=== PATIENT | male | born 1970 | race Caucasian/White ===

== ENCOUNTER 2017-04-11 08:04 | Inpatient (IN) | payer OTHER ==
[~2017-04-11] VITALS: Ht 172.7 cm; Wt 87.0 kg
[2017-04-11] VITALS (21 sets, daily range): BP systolic 88–136; BP diastolic 49–96
[2017-04-11 08:07] LABS: BASOPHIL COUNT 0.1 K/uL (0-0.1); EOSINOPHIL (%) 4.3 % (0-5); EOSINOPHIL COUNT 0.4 K/uL (0-0.3); HEMATOCRIT 51.3 % (38.0-50.0); IMMATURE GRANULOCYTE (%) 0.3 % (0.0-0.7); INSTRUMENT ABS NEUTROPHIL CT 4.7 K/uL; LYMPHOCYTE COUNT 2.9 K/uL (1.0-2.8); MCH 27.7 PG (29.0-34.0); MCHC 33.7 G/DL (30.0-36.0); MCV 82.1 FL (86-99); MEAN PLAT.VOLUME 11.9 uM^3 (9.0-12.4); MONOCYTE (%) 8.4 % (3-12); MONOCYTE COUNT 0.7 K/uL (0-0.8); NEUTROPHIL (%) 53.6 % (45-76); NEUTROPHIL COUNT 4.7 K/uL (1.8-6.4); PLATELET COUNT 232 K/uL (156-360); RBC DIS.WIDTH-CV 13.2 % (11.8-14.6); RBC DIS.WIDTH-SD 39.5 % (39-53); RED BLOOD COUNT 6.25 M/uL (4.00-5.50); WHITE BLOOD COUNT 8.8 K/uL (4.1-10.2)
[2017-04-11 08:12] LABS: INTER. NORMALIZED RATIO 0.9; PROTHROMBIN TIME 10.5 SEC (10.2-12.9)
[2017-04-11 08:15] LABS: PTT 23.7 SEC (25-37)
[2017-04-11 08:35] LABS: AMYLASE 57 IU/L (1-118); CHLORIDE 105 mEq/L (99-109); POTASSIUM 3.8 mEq/L (3.7-5.4); SODIUM 138 mEq/L (136-147)
[2017-04-11 08:37] LABS: GLUCOSE 132 mg/dL (70-99)
[2017-04-11 08:38] LABS: ANION GAP 13 MEQ/L (2-14)
[2017-04-11 08:40] LABS: SERUM ETHYL ALCOHOL < 10 mg/dL
[2017-04-11 08:41] LABS: GFR ESTIMATE (CALCULATED) > 59 mL/min/; TROP-I INTERPRETATION NEGATIVE; TROPONIN-I < 0.01 ng/mL (0.0-0.30)
[2017-04-11 08:42] LABS: UREA NITROGEN (BUN) 12 mg/dL (9-23)
[2017-04-11 08:44] LABS: LIPASE 54 U/L (1.0-51.0)
[2017-04-11 11:15] LABS: METH RESISTANT S AUREUS PCR NEGATIVE (NEGATIVE)
[2017-04-11 11:17] LABS: PROBE CHECK PASS; SPECIMEN PROCESSING CONTROL PASS
[2017-04-11 14:35] LABS: TROP-I INTERPRETATION POSITIVE; TROPONIN-I 37.33 ng/mL (0.0-0.30)
[2017-04-12] VITALS (22 sets, daily range): BP systolic 0–136; BP diastolic 0–90
[2017-04-12 04:51] LABS: BASOPHIL COUNT 0.1 K/uL (0-0.1); EOSINOPHIL (%) 1.5 % (0-5); EOSINOPHIL COUNT 0.2 K/uL (0-0.3); HEMATOCRIT 42.4 % (38.0-50.0); IMMATURE GRANULOCYTE (%) 0.3 % (0.0-0.7); INSTRUMENT ABS NEUTROPHIL CT 8.9 K/uL; LYMPHOCYTE COUNT 3.1 K/uL (1.0-2.8); MCH 27.9 PG (29.0-34.0); MCV 82.2 FL (86-99); MEAN PLAT.VOLUME 12.3 uM^3 (9.0-12.4); MONOCYTE (%) 8.5 % (3-12); MONOCYTE COUNT 1.1 K/uL (0-0.8); NEUTROPHIL (%) 66.1 % (45-76); NEUTROPHIL COUNT 8.9 K/uL (1.8-6.4); PLATELET COUNT 222 K/uL (156-360); RBC DIS.WIDTH-CV 13.6 % (11.8-14.6); RBC DIS.WIDTH-SD 40.6 % (39-53); RED BLOOD COUNT 5.16 M/uL (4.00-5.50); WHITE BLOOD COUNT 13.4 K/uL (4.1-10.2)
[2017-04-12 04:57] LABS: CHLORIDE 102 mEq/L (99-109)
[2017-04-12 05:00] LABS: GLUCOSE 99 mg/dL (70-99)
[2017-04-12 05:01] LABS: ANION GAP 6 MEQ/L (2-14); TOTAL BILIRUBIN 0.6 mg/dL (0.0-1.0)
[2017-04-12 05:03] LABS: ALKALINE PHOSPHATASE 85 IU/L (3-129); GFR ESTIMATE (CALCULATED) > 59 mL/min/
[2017-04-12 05:04] LABS: UREA NITROGEN (BUN) 10 mg/dL (9-23)
[2017-04-12 05:05] LABS: DIRECT BILIRUBIN 0.1 mg/dL (0.0-0.3)
[2017-04-12 05:08] LABS: TROP-I INTERPRETATION POSITIVE
[2017-04-12 05:09] LABS: SODIUM 130 mEq/L (136-147)
[2017-04-12 05:09] LABS: TROPONIN-I 19.33 ng/mL (0.0-0.30)
[2017-04-12 05:32] LABS: HDL CHOLESTEROL 34 MG/DL (Desirable>=40); LDL CHOLESTEROL 140 mg/dL (Desirable<100); NON-HDL CHOLESTEROL 162 mg/dL (Desirable<160); TOTAL CHOLESTEROL 196 mg/dL (Desirable<200); TRIGLYCERIDES 112 MG/DL (Normal: <150)
[2017-04-12 07:05] LABS: Estimated Average Glucose 111 mg/dL (70-123); HEMOGLOBIN A1c (GLYCOHEMOGLOB) 5.5 % HGB (Below 5.7)
[2017-04-13] VITALS: BP 112/70
[2017-04-13 02:00] VITALS: BP 109/76
[2017-04-13 04:00] VITALS: BP 84/60
[2017-04-13 06:00] VITALS: BP 99/68
[2017-04-13 06:08] LABS: BASOPHIL COUNT 0.1 K/uL (0-0.1); EOSINOPHIL (%) 1.8 % (0-5); EOSINOPHIL COUNT 0.2 K/uL (0-0.3); HEMATOCRIT 44.9 % (38.0-50.0); IMMATURE GRANULOCYTE (%) 0.3 % (0.0-0.7); INSTRUMENT ABS NEUTROPHIL CT 6.5 K/uL; MCHC 34.1 G/DL (30.0-36.0); MCV 82.2 FL (86-99); MEAN PLAT.VOLUME 12.3 uM^3 (9.0-12.4); MONOCYTE (%) 11.6 % (3-12); MONOCYTE COUNT 1.3 K/uL (0-0.8); NEUTROPHIL (%) 58.5 % (45-76); NEUTROPHIL COUNT 6.5 K/uL (1.8-6.4); PLATELET COUNT 213 K/uL (156-360); RBC DIS.WIDTH-CV 13.7 % (11.8-14.6); RED BLOOD COUNT 5.46 M/uL (4.00-5.50)
[2017-04-13 06:33] LABS: ANION GAP 10 MEQ/L (2-14); CHLORIDE 107 MEQ/L (99-109); GFR ESTIMATE (CALCULATED) > 59 mL/min/; GLUCOSE 94 mg/dL (70-99); POTASSIUM 4.2 MEQ/L (3.7-5.4); SAMPLE HEMOLYSIS CHECK 0; SAMPLE ICTERIC CHECK 0; SAMPLE LIPEMIA CHECK 0; SODIUM 141 MEQ/L (136-147); UREA NITROGEN (BUN) 14 mg/dL (9-23)
[2017-04-13 09:00] VITALS: BP 106/69
[2017-04-13] MEDS ORDERED: ATORVASTATIN CA80 MG PO (10:06)
[2017-04-13] MEDS ORDERED: NITROSTAT0.4 MG SL (10:06)
[2017-04-13] MEDS ORDERED: ASPIR-LOW81 MG PO (10:06)
[2017-04-13] MEDS ORDERED: NICOTINE PATCH1 EAC2 TD (10:06)
[2017-04-13] MEDS ORDERED: EFFIENT10 MG PO (10:06)
[2017-04-13] MEDS ORDERED: LOPRESSOR25 MG PO (10:06)
== END 2017-04-13 10:47 | disposition home or self-care (01) | DRG 247 ==
LOC: EME → EDBD 08:04 → EME 08:46 → CATH 08:46 → ENRESERV 09:23 → 4WEST 09:49 → ENRESERV 04-12 16:09 → 4WEST 04-13 10:47
PROVIDERS: Emergency Medicine; Internal Medicine Cardiovascular Disease
DX: I21.19 ST elevation (STEMI) myocardial infarction involving other coronary artery of inferior wall (principal); R00.1 Bradycardia, unspecified; I25.10 Atherosclerotic heart disease of native coronary artery without angina pectoris; F17.200 Nicotine dependence, unspecified, uncomplicated
CPT/HCPCS: 80048; 80061; 80076; 81003; 82150; 83036; 83690; 84484; 85025; 85347; 85610; 85730; 86850; 86900; 86901; 87641; 93005; 99281; 99285; C1725; C1769; C1874; C1887; G0480; J0153; J0461; J1200; J1644; J2250; J2405; J3010; J3246; J7030